=== PATIENT | female | born 1945 | race Caucasian/White ===

== ENCOUNTER 2016-11-25 16:33 | Day surgery (SDC) | payer MEDICARE, OTHER ==
[~2016-11-25] VITALS: Ht 154.9 cm; Wt 81.0 kg
[2016-11-25] MEDS ORDERED: ASPIRIN325 M3 PO (16:55)
[2016-11-25] MEDS ORDERED: [UNRECOGNIZED DRUG - OTHER] PO (16:56)
[2016-11-25] MEDS ORDERED: ZOCOR40 M1 PO (16:56)
[2016-11-25] MEDS ORDERED: LOPRESSOR50 M1 PO (16:57)
[2016-11-25] MEDS ORDERED: GLUCOPHAGE1000 M1 PO (16:57)
[2016-11-25] MEDS ORDERED: AMLODIPINE-BEN1 EAC6 PO (16:57)
[2016-11-25] MEDS ORDERED: DESLORATADINE5 M1 PO (16:58)
[2016-11-25] MEDS ORDERED: OMEPRAZOLE20 M4 PO (16:58)
[2016-11-25] MEDS ORDERED: 24 HOUR ALLER15.8 ML (17:00)
[2016-11-25] MEDS ORDERED: L-ARGININE500 M2 PO (17:01)
[2016-11-25] MEDS ORDERED: MAGNESIUM MALATE PO (17:01)
[2016-11-25] MEDS ORDERED: NIASPAN500 M1 PO (17:02)
[2016-11-25] MEDS ORDERED: CINNAMON500 M1 PO (17:02)
[2016-11-25] MEDS ORDERED: CITRULLINE MC (17:02)
[2016-11-25] MEDS ORDERED: VITAMIN D31000 UNI3 PO (17:02)
[2016-11-25] MEDS ORDERED: VITAMIN C500 M3 PO (17:03)
[2016-11-25 18:25] LABS: BASO % 0.2 % (0-2); EOS % 3.3 % (0-7); EOSINOPHIL ABSOLUTE COUNT 0.4 tho/cmm (0.0-0.7); HCT-HEMATOCRIT 41.1 % (34.0-49.0); IMMATURE GRANULOCYTES ABSOLUTE 0.03 tho/cmm (0-0.03); IMMATURE GRANULOCYTES PERCENT 0.2 % (0-0.3); LYMPH % 16.4 % (20-45); LYMPH ABSOLUTE COUNT 2.1 tho/cmm (0.8-4.5); MCH (MEAN CORPUSCULAR HGB) 28.2 pg (28.0-32.0); MCHC MEAN CORPUSCULAR HGB CONC 34.1 % (32.0-36.0); MCV (MEAN CELL VOLUME) 82.7 fl (82.0-96.0); MEAN PLATELET VOLUME 9.2 cmc (9.4-12.4); MONO % 4.2 % (0-12); MONOCYTE ABSOLUTE COUNT 0.5 tho/cmm (0.0-1.2); NEUTROPHIL ABSOLUTE COUNT 9.6 tho/cmm (1.6-8.0); NEUTROPHIL-AUTOMATED 9.6 tho/cmm (1.6-8.0); NEUTROPHILS % 75.7 % (40-80); PLATELET COUNT 201 tho/cmm (150-450); RED BLOOD COUNT 4.97 mil/cmm (4.00-5.20); RED CELL DISTRIBUTION WIDTH 13.3 % (12.4-16.4); WHITE BLOOD COUNT 12.7 tho/cmm (4.0-10.0)
[2016-11-25 18:38] LABS: ANION GAP 10 mmol/L (0-20); BLOOD UREA NITROGEN 11 mg/dl (6-24); CARBON DIOXIDE-VENOUS 26 mmol/L (22-32); CHLORIDE 107 mmol/l (96-110); CREATININE 1.02 mg/dl (0.50-1.10); GLUCOSE 170 mg/dL (70-110); POTASSIUM 4.3 mmol/L (3.7-5.1); SODIUM 139 mmol/L (135-145); eGFR VALUE FOR BLACK 65 mL/Min
[2016-11-26] MEDS ORDERED: PERCOCET 5-3251 EACH PO (14:07)
[2016-11-26] MEDS ORDERED: SENOKOT17.2 MG PO (14:22)
== END 2016-11-26 15:25 ==
LOC: EDMED 16:33 → EMR2 21:16 → CAR1 21:18 → SRG 21:18 → PACU 11-26 → CAR1 11-26 00:46 → SRG 11-26 01:00 → CAR1 11-26 02:24 → SRG 11-26 02:24 → CAR1 11-26 15:25 → SRG 11-26 15:25
PROVIDERS: Emergency Medicine; Orthopaedic Surgery Sports Medicine
PROC: 0PSJ04Z Reposition Left Radius with Internal Fixation Device, Open Approach (ICD-10-PCS; principal; 2016-11-25)
PROC: 01N50ZZ Release Median Nerve, Open Approach (ICD-10-PCS; 2016-11-25)
DX: S52.502B Unspecified fracture of the lower end of left radius, initial encounter for open fracture type I or II (principal); S52.602B Unspecified fracture of lower end of left ulna, initial encounter for open fracture type I or II; G56.02 Carpal tunnel syndrome, left upper limb; I10 Essential (primary) hypertension; E78.5 Hyperlipidemia, unspecified; E11.9 Type 2 diabetes mellitus without complications; I25.10 Atherosclerotic heart disease of native coronary artery without angina pectoris; J40 Bronchitis, not specified as acute or chronic; K21.9 Gastro-esophageal reflux disease without esophagitis; Z79.82 Long term (current) use of aspirin; Z79.84 Long term (current) use of oral hypoglycemic drugs; Z79.51 Long term (current) use of inhaled steroids; Z79.899 Other long term (current) drug therapy; W03.XXXA Other fall on same level due to collision with another person, initial encounter; Y93.89 Activity, other specified; Y92.511 Restaurant or cafe as the place of occurrence of the external cause; Y99.8 Other external cause status
CPT/HCPCS: C1713; J0690; J1170; J1200; J1815; J2270